=== PATIENT | female | born 1970 | race Caucasian/White ===

== ENCOUNTER 2019-05-09 13:28 | Emergency (ER) | payer SELFPAY ==
[~2019-05-09] VITALS: Ht 162.6 cm; Wt 58.5 kg
[2019-05-09] MEDS ORDERED: diphenhydrAMINE HCL 50 MG/ML VIAL ONE (14:54)
[2019-05-09] MEDS ORDERED: ACETAMINOPHEN ES 500 MG TABLET ONE (14:55)
[2019-05-09] MEDS ORDERED: METOCLOPRAMIDE HCL 10 MG/2 ML VIAL ONE (14:55)
[2019-05-09 15:06] LABS: BASOPHILS # (AUTO) 0.1 /CMM (0.0-0.2); BASOPHILS % (AUTO) 0.5 % (0.0-2.0); EOSINOPHILS % (AUTO) 0.5 % (0.0-6.0); HEMATOCRIT 44 % (33-45); HEMOGLOBIN 14.7 g/dL (11.5-14.8); LYMPHOCYTES # (AUTO) 1.3 /CMM (0.8-4.8); LYMPHOCYTES % (AUTO) 11.8 % (20.0-44.0); MEAN CORPUSCULAR HGB CONC 34 g/dl (31.0-36.0); MEAN CORPUSCULAR VOLUME 91 fL (82-100); MONOCYTES # (AUTO) 0.5 /CMM (0.1-1.30); MONOCYTES % (AUTO) 4.4 % (2.0-12.0); NEUTROPHILS # (AUTO) 9.5 /CMM (1.8-8.9); NEUTROPHILS % (AUTO) 82.8 % (43.0-81.0); PLATELET COUNT (AUTO) 275 /CMM (150-450); WHITE BLOOD COUNT (AUTO) 11.4 K/uL (4.3-11.0)
[2019-05-09 15:12] LABS: CALCIUM, SERUM 9.6 mg/dL (8.5-10.1); CARBON DIOXIDE 27 mmol/L (21-32); CHLORIDE 105 mmol/L (98-107); CREATININE 0.8 mg/dL (0.6-1.3); GLUCOSE 121 mg/dL (74-106); SODIUM SERUM 141 mmol/L (136-145); UREA NITROGEN, BLOOD 22 mg/dL (7-18)
[2019-05-09] MEDS: METOCLOPRAMIDE HCL 10 MG/2 ML VIAL IV ONE (15:15)
[2019-05-09] MEDS: IV NS 0.9% 1,000 ML BAG IV ONE (15:15)
[2019-05-09] MEDS: diphenhydrAMINE HCL 50 MG/ML VIAL IV ONE (15:17)
[2019-05-09] MEDS: ACETAMINOPHEN ES 500 MG TABLET PO ONE (15:18)
--- NOTE | 2019-05-09 15:18 | NUR ---
C/O HEAD PAIN 30 MINS SPECIAL DIET COOK AND BILATERAL ARM NUMBNESS, 3/10 PS. PT AAOX4, VSS. SPEAKING FLUENTLY, NO SLURRED SPEECH, NO FACIAL DROOP, NO ARM DRIFTING. TAVARES NUMBNESS RESOLVED. DENIES CP, SOB, DIZZINESS, N/V, WEAKNESS @ THIS TIME. PT SEEN & EVAL'D BY DR. CARDONA. MEDICATED ORDERED, PT FELISA WELL & WILL CONT TO MONITOR.
--- NOTE | 2019-05-09 17:28 | NUR ---
Patient discharged to home in stable condition. Written and verbal after care instructions given. Patient verbalizes understanding of instruction. IV removed. Catheter intact and site benign. Pressure and 4x4 applied to site. No bleeding noted.
[2019-05-09 17:29] VITALS: BP 128/78
== END 2019-05-09 17:30 | disposition home or self-care (01) ==
LOC: ER 13:28
DX: R51 Headache (principal); R42 Dizziness and giddiness; Z60.2 Problems related to living alone
CPT/HCPCS: 36415; 80048; 84484; 85025; 93005; 96361; 96374; 96375; 99284; J1200; J2765; J7030

== ENCOUNTER 2023-04-26 17:17 | Emergency (ER) | payer MEDICAID | END 2023-04-26 18:32 | disposition left against medical advice (07) | LOC: ER 17:22 | DX: Z53.21 Procedure and treatment not carried out due to patient leaving prior to being seen by health care provider (principal) ==